=== PATIENT | male | born 1975 | race Caucasian/White ===

== ENCOUNTER 2022-06-21 16:34 | Emergency (ER) | payer MEDICAID ==
[2022-06-21] MEDS ORDERED: Sodium Chloride 0.9% 1,000 ML IV SCH (19:15)
[2022-06-21] MEDS: Sodium Chloride 0.9% 10 ML Syringe FLUSH PRN ×2 (19:34→20:09)
[2022-06-21] MEDS ORDERED: Sodium Chloride 0.9% 10 ML SDV FLUSH ONE (19:48)
[2022-06-21 19:50] LABS: ESTIMATED GFR 94 mL/min (>60); TROPONIN I HIGH SENSITIVITY 6.2 pg/mL (<=60.3)
[2022-06-21] MEDS ORDERED: Sodium Chloride 0.9% 100 ML IV SCH (20:00)
[2022-06-21] MEDS ORDERED: Iopamidol 755 Mg/ML 100 ML Bottle IV SCH (20:00)
== END 2022-06-21 21:46 | disposition home or self-care (01) ==
LOC: JP.ED 16:34
DX: R20.2 Paresthesia of skin (principal); R20.0 Anesthesia of skin; R42 Dizziness and giddiness; Z72.0 Tobacco use
CPT/HCPCS: 36415; 70450; 70496; 70498; 80053; 83605; 84484; 85025; 93005; 96360; 96361; 99284; J3490; J7030; Q9967; 93010; 99283